=== PATIENT | female | born 1945 | race African-American/Black ===

== ENCOUNTER 2021-06-25 08:00 | Inpatient (IN) | payer MEDICARE, MEDICAID ==
[~2021-06-25] VITALS: Ht 170.2 cm; Wt 58.1 kg
[2021-06-25] MEDS ORDERED: ACETAMINOPHEN 325MG TABLET PO STA (08:31)
[2021-06-25 09:42] LABS: BASOPHILS % 0.8 % (0.0-2.0); CHLORIDE 107 mEq/L (98-107); EOSINOPHILS % 2.6 % (0.0-5.0); HEMATOCRIT. 37.1 % (36.0-48.0); HEMOGLOBIN. 11.8 g/dL (12.0-16.0); MEAN CORPUSCULAR HEMOGLOBIN 27.5 pg (28.0-32.0); MEAN CORPUSCULAR VOLUME 86.2 fL (81.0-99.0); MEAN PLATELET VOLUME 7.3 fl (7.4-10.4); MONOCYTES % 7.7 % (2.0-8.0); NEUTROPHILS % 63.9 % (40.0-76.0); PLATELET 323 x1000/uL (130-400); RED CELL DISTRIBUTION WIDTH 13.3 % (11.6-14.6)
[2021-06-25 09:47] LABS: PROTHROMBIN TIME 10.6 sec (9.6-11.0)
[2021-06-25] MEDS ORDERED: MORPHINE SULFATE 2 MG/ML CPJ (NOT FOR IM USE) IV ONE (11:00)
[2021-06-25] MEDS ORDERED: IOHEXOL-350 100 ML BOTTLE ONE (11:52)
[2021-06-25] MEDS ORDERED: IPRATROPIUM/ALBUTEROL 0.5-3(2.5)MG/3ML NEB HHN PRN (12:15)
[2021-06-25] MEDS ORDERED: CLONIDINE 0.1MG TABLET PO PRN (12:15)
[2021-06-25] MEDS ORDERED: ACETAMINOPHEN 325MG TABLET PO PRN (12:15)
[2021-06-25] MEDS ORDERED: DIPHENHYDRAMINE 50MG/ML VIAL IV PRN (12:15)
[2021-06-25] MEDS ORDERED: NALOXONE HCL 0.4MG/ML VIAL IV PRN (12:45)
[2021-06-25 13:00] VITALS: BP 148/60
[2021-06-25 13:30] VITALS: BP 148/60
[2021-06-25] MEDS: MORPHINE SULFATE 2 MG/ML CPJ (NOT FOR IM USE) IV PRN (14:54)
[2021-06-25 16:00] VITALS: BP 150/72
[2021-06-25 20:00] VITALS: BP 138/62
[2021-06-26] VITALS: BP 115/56
[2021-06-26 04:00] VITALS: BP 119/54
[2021-06-26 12:00] VITALS: BP 141/67
[2021-06-26] MEDS ORDERED: LIDOCAINE HCL/EPINEPHRINE 1%-EPI 1:100,000 20 ML VIAL ONE (14:53)
[2021-06-26] MEDS ORDERED: POLYMYXIN B SULFATE 500000 UNITS/VIAL ONE (14:53)
[2021-06-26] MEDS ORDERED: VANCOMYCIN HCL 1 GM/VIAL ONE (14:53)
[2021-06-26] MEDS ORDERED: BACITRACIN 15GM TUBE TOP ONE (14:53)
[2021-06-26 16:00] VITALS: BP 143/56
[2021-06-26] MEDS ORDERED: ROPIVACAINE HCL 10MG/ML 20 ML VIAL EPI ONE ×2 (16:56→18:33)
[2021-06-26 17:10] LABS: BASOPHILS % 0.8 % (0.0-2.0); EOSINOPHILS % 1.5 % (0.0-5.0); HEMATOCRIT. 35.3 % (36.0-48.0); LYMPHOCYTES % 33.7 % (20.0-50.0); MEAN CORPUSCULAR HEMOGLOBIN 27.5 pg (28.0-32.0); MEAN CORPUSCULAR VOLUME 87.8 fL (81.0-99.0); MEAN PLATELET VOLUME 7.5 fl (7.4-10.4); MONOCYTES % 11.1 % (2.0-8.0); NEUTROPHILS % 52.9 % (40.0-76.0); PLATELET 315 x1000/uL (130-400); RED BLOOD CELL COUNT 4.02 mill/uL (4.2-5.4); RED CELL DISTRIBUTION WIDTH 13.3 % (11.6-14.6)
[2021-06-26 17:27] LABS: CHLORIDE 106 mEq/L (98-107)
[2021-06-26] MEDS ORDERED: PROPOFOL 200MG/20ML VIAL IV ONE (18:28)
[2021-06-26] MEDS ORDERED: FENTANYL CITRATE/PF 50MCG/ML 2ML VIAL ONE ×2 (18:28→18:32)
[2021-06-26] MEDS ORDERED: NEOSTIGMINE METHYLSULFATE 1MG/ML 10 ML VIAL ONE (18:28)
[2021-06-26] MEDS ORDERED: ROCURONIUM BROMIDE 10MG/ML VIAL 5ML IV ONE (18:28)
[2021-06-26] MEDS ORDERED: GLYCOPYRROLATE 0.2 MG/ML 2ML VIAL ONE (18:29)
[2021-06-26] MEDS ORDERED: MIDAZOLAM HCL 2 MG/2 ML VIAL ONE (18:29)
[2021-06-26] MEDS ORDERED: SUCCINYLCHOLINE CHLORIDE 200MG/10ML IV ONE (18:29)
[2021-06-26] MEDS ORDERED: SODIUM CHLORIDE 0.9% 10ML VIAL ONE (18:29)
[2021-06-26] MEDS ORDERED: PHENYLEPHRINE HCL 10 MG/ML 1ML (IV VIAL) IV ONE (18:29)
[2021-06-26] MEDS ORDERED: METOCLOPRAMIDE HCL 10MG/2ML VIAL ONE (18:29)
[2021-06-26] MEDS ORDERED: CEFAZOLIN SODIUM 1000MG/VIAL ONE (18:29)
[2021-06-26] MEDS ORDERED: ONDANSETRON HCL 4MG/2ML INJ ONE (18:29)
[2021-06-27] VITALS: BP 141/58
[2021-06-27] MEDS: CEFAZOLIN 2,000 MG in DEXT 5% WATER 100 ML IV SCH ×3 (05:55→22:03)
[2021-06-27 08:00] VITALS: BP 151/62
[2021-06-27] MEDS: MORPHINE SULFATE 2 MG/ML CPJ (NOT FOR IM USE) IV PRN ×2 (10:16→19:16)
[2021-06-27 12:00] VITALS: BP 131/65
[2021-06-27 16:00] VITALS: BP 139/64
[2021-06-27 20:00] VITALS: BP 148/65
[2021-06-28] VITALS: BP 166/66
[2021-06-28 04:00] VITALS: BP 151/71
[2021-06-28 08:00] VITALS: BP 134/71
[2021-06-28 11:51] VITALS: BP 131/65
[2021-06-28] MEDS: MORPHINE SULFATE 2 MG/ML CPJ (NOT FOR IM USE) IV PRN (15:44)
[2021-06-28 16:01] VITALS: BP 135/60
[2021-06-28 20:00] VITALS: BP 126/58
[2021-06-29 00:43] VITALS: BP 126/62
[2021-06-29 04:00] VITALS: BP 139/48
[2021-06-29] MEDS: MORPHINE SULFATE 2 MG/ML CPJ (NOT FOR IM USE) IV PRN ×2 (05:43→21:48)
[2021-06-29 08:00] VITALS: BP 128/66
[2021-06-29 08:53] LABS: CHLORIDE 107 mEq/L (98-107)
[2021-06-29 09:11] LABS: BASOPHILS % 0.6 % (0.0-2.0); EOSINOPHILS % 1.5 % (0.0-5.0); HEMATOCRIT. 32.9 % (36.0-48.0); HEMOGLOBIN. 10.5 g/dL (12.0-16.0); LYMPHOCYTES % 20.7 % (20.0-50.0); MEAN CORPUSCULAR HEMOGLOBIN 28.3 pg (28.0-32.0); MEAN CORPUSCULAR VOLUME 88.2 fL (81.0-99.0); MEAN PLATELET VOLUME 7.5 fl (7.4-10.4); MONOCYTES % 11.7 % (2.0-8.0); NEUTROPHILS % 65.5 % (40.0-76.0); PLATELET 278 x1000/uL (130-400); RED BLOOD CELL COUNT 3.73 mill/uL (4.2-5.4); RED CELL DISTRIBUTION WIDTH 13.6 % (11.6-14.6)
[2021-06-29 12:00] VITALS: BP 112/57
[2021-06-29 20:00] VITALS: BP 147/66
[2021-06-30] VITALS: BP 130/69
[2021-06-30 04:00] VITALS: BP 123/66
[2021-06-30 07:21] LABS: BASOPHILS % 0.7 % (0.0-2.0); EOSINOPHILS % 3.6 % (0.0-5.0); HEMATOCRIT. 33.6 % (36.0-48.0); HEMOGLOBIN. 10.8 g/dL (12.0-16.0); LYMPHOCYTES % 19.8 % (20.0-50.0); MEAN CORPUSCULAR HEMOGLOBIN 28.2 pg (28.0-32.0); MEAN CORPUSCULAR VOLUME 87.4 fL (81.0-99.0); MEAN PLATELET VOLUME 7.5 fl (7.4-10.4); MONOCYTES % 9.2 % (2.0-8.0); NEUTROPHILS % 66.7 % (40.0-76.0); PLATELET 341 x1000/uL (130-400); RED BLOOD CELL COUNT 3.85 mill/uL (4.2-5.4); RED CELL DISTRIBUTION WIDTH 13.1 % (11.6-14.6)
[2021-06-30 07:36] LABS: CHLORIDE 104 mEq/L (98-107)
[2021-06-30 08:00] VITALS: BP 111/61
[2021-06-30] MEDS: MORPHINE SULFATE 2 MG/ML CPJ (NOT FOR IM USE) IV PRN (11:36)
[2021-06-30 12:00] VITALS: BP 118/82
[2021-06-30] MEDS: POLYETHYLENE GLYCOL 3350 (17GM) 1 DOSE PACK PO SCH (15:15)
[2021-06-30] MEDS: ENOXAPARIN 40MG/0.4ML SYR SUBCUT SCH (15:30)
[2021-06-30 16:00] VITALS: BP 111/75
[2021-06-30 20:00] VITALS: BP 130/72
[2021-07-01] VITALS: BP 140/61
[2021-07-01] MEDS: HYDROCODONE/ACETAMINOPHEN 5/325MG TABLET PO PRN ×2 (01:30→19:59)
[2021-07-01 04:00] VITALS: BP 109/67
[2021-07-01] MEDS: POLYETHYLENE GLYCOL 3350 (17GM) 1 DOSE PACK PO SCH (08:55)
[2021-07-01] MEDS: ENOXAPARIN 40MG/0.4ML SYR SUBCUT SCH (14:34)
[2021-07-01 16:00] VITALS: BP 113/54
[2021-07-01 20:01] VITALS: BP 142/62
[2021-07-02] VITALS: BP 122/58
[2021-07-02 04:58] VITALS: BP 115/70
[2021-07-02 07:57] VITALS: BP 104/60
[2021-07-02] MEDS: ENOXAPARIN 40MG/0.4ML SYR SUBCUT SCH (09:22)
[2021-07-02] MEDS: POLYETHYLENE GLYCOL 3350 (17GM) 1 DOSE PACK PO SCH (09:22)
[2021-07-02 12:00] VITALS: BP 116/59
[2021-07-02 15:56] VITALS: BP 116/66
[2021-07-02 20:00] VITALS: BP 152/64
[2021-07-03] VITALS: BP 143/69
[2021-07-03] MEDS: HYDROCODONE/ACETAMINOPHEN 5/325MG TABLET PO PRN ×2 (00:49→11:45)
[2021-07-03 08:00] VITALS: BP 152/69
[2021-07-03] MEDS: POLYETHYLENE GLYCOL 3350 (17GM) 1 DOSE PACK PO SCH (09:00)
[2021-07-03 12:00] VITALS: BP 126/66
[2021-07-03] MEDS: ENOXAPARIN 40MG/0.4ML SYR SUBCUT SCH (15:30)
[2021-07-03 16:00] VITALS: BP 145/77
[2021-07-03 20:00] VITALS: BP 137/62
[2021-07-04 04:00] VITALS: BP 137/71
[2021-07-04 08:00] VITALS: BP 133/71
[2021-07-04] MEDS: POLYETHYLENE GLYCOL 3350 (17GM) 1 DOSE PACK PO SCH (09:00)
[2021-07-04] MEDS: HYDROCODONE/ACETAMINOPHEN 5/325MG TABLET PO PRN (10:45)
[2021-07-04 12:00] VITALS: BP 141/61
[2021-07-04] MEDS: ENOXAPARIN 40MG/0.4ML SYR SUBCUT SCH (15:30)
[2021-07-04 16:00] VITALS: BP 139/72
[2021-07-04 20:00] VITALS: BP 140/65
[2021-07-05 04:00] VITALS: BP 120/75
[2021-07-05] MEDS: POLYETHYLENE GLYCOL 3350 (17GM) 1 DOSE PACK PO SCH (09:00)
[2021-07-05] MEDS: HYDROCODONE/ACETAMINOPHEN 5/325MG TABLET PO PRN (11:20)
[2021-07-05 12:00] VITALS: BP 115/64
[2021-07-05] MEDS ORDERED: HYDR-4001 MT ×3 (15:32→15:34)
[2021-07-05] MEDS ORDERED: ACET650T37 MT ×3 (15:32→15:34)
[2021-07-05] MEDS: ENOXAPARIN 40MG/0.4ML SYR SUBCUT SCH (15:53)
[2021-07-05 16:00] VITALS: BP 137/71
[2021-07-05 20:00] VITALS: BP 117/74
[2021-07-06] VITALS: BP 120/65
[2021-07-06 04:00] VITALS: BP 108/67
[2021-07-06 08:00] VITALS: BP 131/62
[2021-07-06] MEDS: POLYETHYLENE GLYCOL 3350 (17GM) 1 DOSE PACK PO SCH (09:00)
[2021-07-06 10:40] VITALS: BP 131/67
[2021-07-06 12:00] VITALS: BP 150/63
[2021-07-06] MEDS: ENOXAPARIN 40MG/0.4ML SYR SUBCUT SCH (14:34)
== END 2021-07-06 16:47 | disposition home health service (06) | DRG 320 ==
LOC: ER 08:00 → 6EST 11:28 → EDBEDREQ 11:30 → EDBEDREQTM 11:30 → ENRESERV 11:37
PROVIDERS: ADMIT Internal Medicine; ATTEND Internal Medicine
PROC: 0QSFXZZ Reposition Left Patella, External Approach (ICD-10-PCS; 2021-06-25)
PROC: 0QSF04Z Reposition Left Patella with Internal Fixation Device, Open Approach (ICD-10-PCS; principal; 2021-06-26)
DX: S82.042A Displaced comminuted fracture of left patella, initial encounter for closed fracture (principal); F03.90 Unspecified dementia, unspecified severity, without behavioral disturbance, psychotic disturbance, mood disturbance, and anxiety; F17.200 Nicotine dependence, unspecified, uncomplicated; Z20.822 Contact with and (suspected) exposure to COVID-19; W01.0XXA Fall on same level from slipping, tripping and stumbling without subsequent striking against object, initial encounter; Z88.0 Allergy status to penicillin; Y93.89 Activity, other specified; Y99.8 Other external cause status; Y92.098 Other place in other non-institutional residence as the place of occurrence of the external cause
CPT/HCPCS: 36415; 73560; 73562; 73706; 76000; 80048; 80053; 84443; 85025; 87426; 93005; 97116; 97162; 97166; 97530; 99291; J0330; J0690; J1650; J2250; J2270; J2370; J2405; J2704; J2710; J2765; J2795; J3010; J3370; J3490; J7040; J7060; L1830; Q9967

== ENCOUNTER 2021-08-14 14:06 | Emergency (ER) | payer MEDICARE, MEDICAID ==
[~2021-08-14] VITALS: Ht 162.6 cm; Wt 50.0 kg
[~2021-08-14 14:06] MED LIST: ACET650T37 MT; ETOMIDATE 2MG/ML 10ML VIAL IV ONE; HYDR-4001 MT; SODIUM CHLORIDE 0.9% 10ML VIAL ONE; VECURONIUM BROMIDE 10 MG/VIAL IV ONE
[2021-08-14 14:09] VITALS: BP 96/60
[2021-08-14] MEDS ORDERED: SODIUM CHLORIDE 0.9% 1000ML BAG (SEPSIS BOLUS) IV ONE (14:30)
[2021-08-14] MEDS ORDERED: DEXTROSE 50% WATER 50ML SYRINGE IV ONE (14:30)
== END 2021-08-14 16:55 ==
LOC: ER 14:06
DX: U07.1 COVID-19 (principal); J96.01 Acute respiratory failure with hypoxia; I95.9 Hypotension, unspecified; I46.9 Cardiac arrest, cause unspecified; Z86.19 Personal history of other infectious and parasitic diseases; Z88.0 Allergy status to penicillin
CPT/HCPCS: 31500; 82962; 94002; 99291; J3490; J7030; Z7610